=== PATIENT | female | born 1990 | race Caucasian/White ===

== ENCOUNTER 2022-04-15 07:11 | Outpatient (CLI) | payer BC, OTHER, SELFPAY ==
--- NOTE | 2022-04-15 07:24 | US_ITS ---
WS: [id number] ULTRASOUND LEFT BREAST HISTORY: BREAST LUMP L SIDE AT 2 O'CLOCK POSITION COMPARISON: None available. TECHNIQUE: 2-D and Doppler. Ultrasound is directed to the LEFT breast at 2-3 o'clock as directed by the patient. There is no mass or shadowing or distortion evident. No skin thickening or increased vascularity. US/US breast LT limited* [id number] IMPRESSION: BI-RADS: 1-Negative FOLLOW-UP: See Report LACK OF RADIOGRAPHIC EVIDENCE OF MALIGNANCY SHOULD NOT DELAY BIOPSY IF A CLINIC ALLY SUSPICIOUS MASS IS PRESENT. Diagnostic mammogram can also be performed in a patient that is 31 years of age .
== END 2022-04-15 07:12 | disposition home or self-care (01) ==
LOC: RAD 07:19
PROVIDERS: Visit Provider Nurse Practitioner Family
DX: N63.21 Unspecified lump in the left breast, upper outer quadrant (principal)
CPT/HCPCS: 76642